=== PATIENT | female | born 1985 | race African-American/Black ===

== ENCOUNTER 2017-07-16 09:12 | Emergency (ER) | payer OTHER ==
[~2017-07-16] VITALS: Ht 170.2 cm; Wt 66.2 kg
--- NOTE | ~2017-07-16 | EKG ---
[address] [place] [address] ELECTROCARDIOGRAM REPORT Name: GIGI DELGADILLO [id number] Admission: 07/16/17 Attend Phys: Discharge: Date of : 89 Report #: [id number] THIS REPORT FOR: //name// 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
[~2017-07-16 09:12] MED LIST: ALEVE220 MG PO; BUPROPION XL300 MG PO; COLACE 100 MG100 MG PO; HYDROCODON-ACE1 EAC7 PO; IBUPROFEN 600600 M1 PO; IRON325 PO; KEFLEX500 MG PO; NOHOMEMEDICATIONS; ONDANSETRON HCL4 M2 PO; PROAIR HFA8.5 GM INH; PROMETHAZINE-C120 ML PO; PYRIDIUM200 MG PO; TESSALON200 MG PO; TYLENOL PM EX-1 EACH PO; ZOFRAN ODT4 MG PO; ZPAK PO
[2017-07-16 09:54] LABS: ABSOLUTE NEUTROPHILS 3.2 thou/uL (1.4-8.2); BASOPHILS 0.9 % (0.0-2.0); EOSINOPHILS 1.3 % (0.0-3.0); HEMATOCRIT 39.7 % (37.0-47.0); HEMOGLOBIN 13.4 gm/dL (12.0-15.0); LYMPHOCYTES 31.4 % (24.0-44.0); MANUAL DIFF NO; MCH 28.7 pg (26.0-34.0); MCHC 33.7 g/dL (28.0-37.0); MONOCYTES 6.1 % (1.0-8.0); PLATELET COUNT 269 thou/uL (150-400); POLYS 60.3 % (36.0-66.0); RBC 4.67 mil/uL (4.20-5.00); RDW 13.9 % (10.5-14.5); WBC 5.3 thou/uL (4.0-11.0)
[2017-07-16 09:54] LABS: URINE BILIRUBIN NEGATIVE (Negative); URINE BLOOD NEGATIVE (Negative); URINE COLOR YELLOW; URINE GLUCOSE-RANDOM* NEGATIVE (Negative); URINE KETONES NEGATIVE (Negative); URINE NITRITE NEGATIVE (Negative); URINE PROTEIN (DIPSTICK) NEGATIVE (Negative); URINE SPECIFIC GRAVITY 1.015 (1.003-1.035); URINE UROBILINOGEN 0.2 E.U./dl (0.2-1.0)
[2017-07-16 10:00] LABS: ANION GAP 9 mmol/L (7-16); BUN 9 mg/dL (7-18); CALCIUM 9.2 mg/dL (8.5-10.1); CHLORIDE 101 mmol/L (98-107); CO2 27 mmol/L (21-32); CREATININE 0.7 mg/dL (0.6-1.0); GLUCOSE 92 mg/dL (74-106); POTASSIUM 3.4 mmol/L (3.5-5.1); SODIUM 137 mmol/L (136-145)
[2017-07-16 10:09] LABS: ALBUMIN 4.3 g/dL (3.4-5.0); ALKALINE PHOSPHATASE 77 U/L (46-116); DIRECT BILIRUBIN < 0.1 mg/dL (<0.1-0.3); SGOT 15 U/L (15-37); SGPT 22 U/L (30-65); TOTAL BILIRUBIN 0.3 mg/dL (<0.1-1.0); TOTAL PROTEIN 8.8 g/dL (6.4-8.2); TROPONIN-I < 0.04 ng/mL (<0.04-0.07)
[2017-07-16] MEDS ORDERED: DICLEGIS DR 101 EACH PO (11:23)
[2017-07-16 12:13] VITALS: BP 128/80
== END 2017-07-16 11:24 | disposition home or self-care (01) ==
LOC: ER 09:12
PROVIDERS: Nurse Practitioner
DX: O26.891 Other specified pregnancy related conditions, first trimester (principal); J45.909 Unspecified asthma, uncomplicated; I10 Essential (primary) hypertension; Z3A.08 8 weeks gestation of pregnancy; Z88.8 Allergy status to other drugs, medicaments and biological substances

== ENCOUNTER 2020-02-11 12:31 | Emergency (ER) | payer OTHER ==
[~2020-02-11] VITALS: Ht 175.3 cm; Wt 79.4 kg
[~2020-02-11 12:31] MED LIST changes: +DICLEGIS DR 101 EACH PO
[2020-02-11 13:30] LABS: ABSOLUTE NEUTROPHILS 2.9 thou/uL (1.4-8.2); BASOPHILS 1.1 % (0.0-2.0); EOSINOPHILS 1.8 % (0.0-3.0); HEMATOCRIT 38.3 % (37.0-47.0); HEMOGLOBIN 12.9 gm/dL (12.0-15.0); LYMPHOCYTES 38.7 % (24.0-44.0); MCH 28.5 pg (26.0-34.0); MCHC 33.6 g/dL (28.0-37.0); MCV 84.9 fL (80.0-100.0); MONOCYTES 7.8 % (1.0-8.0); PLATELET COUNT 313 thou/uL (150-400); POLYS 50.6 % (36.0-66.0); RDW 14.2 % (10.5-14.5); WBC 5.7 thou/uL (4.0-11.0)
[2020-02-11 13:36] LABS: ANION GAP 7 mmol/L (7-16); BUN 13 mg/dL (7-18); CALCIUM 9.1 mg/dL (8.5-10.1); CHLORIDE 103 mmol/L (98-107); CO2 27 mmol/L (21-32); CREATININE 0.9 mg/dL (0.6-1.0); GLUCOSE 90 mg/dL (74-106); POTASSIUM 3.4 mmol/L (3.5-5.1); SODIUM 137 mmol/L (136-145)
[2020-02-11 13:45] LABS: ALBUMIN 3.6 g/dL (3.4-5.0); SGOT 21 U/L (15-37); SGPT 33 U/L (30-65); TOTAL BILIRUBIN 0.4 mg/dL (<0.1-1.0); TROPONIN-I <0.06 ng/mL (<0.06)
[2020-02-11] MEDS ORDERED: ABILIFY15 MG PO (14:24)
[2020-02-11] MEDS ORDERED: [UNRECOGNIZED DRUG - REMARK] (14:28)
[2020-02-11] MEDS ORDERED: NAPROSYN500 MG PO (14:47)
[2020-02-11] MEDS ORDERED: CATAPRES0.1 MG PO (14:47)
[2020-02-11 15:19] VITALS: BP 151/100
--- NOTE | 2020-02-11 16:45 | EKG ---
[facility] [place] [address] ELECTROCARDIOGRAM REPORT Name: GIGI DELGADILLO Room #: [facility]#: [id number] Admission: 02/11/20 Attend Phys: Discharge: Date of : 89 Report #: [id number] THIS REPORT FOR: cc: NO FAMILY PHYSICIAN or PCP FAM - No family physician/PCP Pola Nunez MD ~ THIS REPORT FOR: //name// [facility] ED Test Date: 2020-02-11 Test Time: 12:36:16 Pat Name: GIGI DELGADILLO Department: Room: Gender: Methods And Procedures Analyst: NATALIYA : 1985 Requested By: Omega Perez Order Number: [id number] MD: Pola Nunez Measurements Intervals [place] Rate: 89 P: 57 MD: 147 QRS: 55 QRSD: 82 T: 48 QT: 346 QTc: 417 Interpretive Statements Sinus rhythm Compared to ECG 07/16/2017 09:19:16 No significant changes Electronically Signed On 02-11-2020 16:43:53 CDT by Pola Nunez [email or web address] <ELECTRONICALLY SIGNED> By: Pola Nunez MD 02/11/20 1643 35 35 Pola Nunez MD /THEO
== END 2020-02-11 15:25 | disposition home or self-care (01) ==
LOC: ER 12:31
PROVIDERS: Emergency Medicine
DX: I10 Essential (primary) hypertension (principal); R07.89 Other chest pain; M25.512 Pain in left shoulder; J45.909 Unspecified asthma, uncomplicated; Z91.19 Patient's noncompliance with other medical treatment and regimen; Z88.8 Allergy status to other drugs, medicaments and biological substances

== ENCOUNTER 2020-05-29 10:31 | Emergency (ER) | payer OTHER ==
[~2020-05-29] VITALS: Ht 170.2 cm; Wt 65.8 kg
[~2020-05-29 10:31] MED LIST changes: +ABILIFY15 MG PO; +CATAPRES0.1 MG PO; +NAPROSYN500 MG PO; +[UNRECOGNIZED DRUG - REMARK]
[2020-05-29] MEDS ORDERED: NORVASC 2.5 MG2.5 M1 PO (10:46)
[2020-05-29 11:46] VITALS: BP 137/88
== END 2020-05-29 11:46 | disposition home or self-care (01) ==
LOC: ER 10:31
DX: M25.511 Pain in right shoulder (principal); J45.909 Unspecified asthma, uncomplicated; I10 Essential (primary) hypertension; Z79.899 Other long term (current) drug therapy; Z88.8 Allergy status to other drugs, medicaments and biological substances

== ENCOUNTER 2021-11-20 05:45 | Emergency (ER) | payer OTHER ==
[~2021-11-20] VITALS: Ht 170.2 cm; Wt 74.8 kg
[~2021-11-20 05:45] MED LIST changes: +NORVASC 2.5 MG2.5 M1 PO
[2021-11-20 06:56] LABS: ABSOLUTE NEUTROPHILS 3.7 thou/uL (1.4-8.2); BASOPHILS 0.8 % (0.0-2.0); EOSINOPHILS 0.6 % (0.0-3.0); HEMATOCRIT 38.1 % (37.0-47.0); HEMOGLOBIN 12.6 gm/dL (12.0-15.0); LYMPHOCYTES 14.5 % (24.0-44.0); MCH 28.2 pg (26.0-34.0); MCV 85.5 fL (80.0-100.0); MONOCYTES 13.1 % (1.0-8.0); PLATELET COUNT 320 thou/uL (150-400); RBC 4.46 mil/uL (4.20-5.00); RDW 12.9 % (10.5-14.5); WBC 5.2 thou/uL (4.0-11.0)
[2021-11-20 06:59] LABS: CALCIUM 9.1 mg/dL (8.5-10.1); CREATININE 0.7 mg/dL (0.6-1.0); POTASSIUM 3.6 mmol/L (3.5-5.1)
[2021-11-20 07:39] LABS: URINE BILIRUBIN NEGATIVE (Negative); URINE BLOOD NEGATIVE (Negative); URINE CLARITY CLEAR; URINE COLOR YELLOW; URINE GLUCOSE-RANDOM* NEGATIVE (Negative); URINE KETONES NEGATIVE (Negative); URINE LEUKOCYTES-REFLEX TRACE (Negative); URINE NITRITE-REFLEX NEGATIVE (Negative); URINE PROTEIN (DIPSTICK) NEGATIVE (Negative); URINE UROBILINOGEN 0.2 E.U./dl (0.2-1.0)
[2021-11-20 07:51] VITALS: BP 153/103
[2021-11-20 07:56] LABS: SSA (PROTEIN CONFIRMATORY) NEGATIVE (Negative)
--- NOTE | 2021-11-20 08:59 | EKG ---
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 11/20/21 0858 0721 0721 Herbert Flannery MD, FAC /EPI
== END 2021-11-20 07:51 | disposition home or self-care (01) ==
LOC: ER 05:45
PROVIDERS: Student in an Organized Health Care Education/Training Program
DX: U07.1 COVID-19 (principal); R51.9 Headache, unspecified; M79.18 Myalgia, other site; J45.909 Unspecified asthma, uncomplicated; I10 Essential (primary) hypertension; Z98.890 Other specified postprocedural states; Z79.899 Other long term (current) drug therapy; Z91.041 Radiographic dye allergy status